=== PATIENT | male | born 1980 | race Caucasian/White ===

== ENCOUNTER 2017-05-26 16:59 | Emergency (ER) | payer OTHER ==
[~2017-05-26] VITALS: Ht 175.3 cm; Wt 90.7 kg
--- NOTE | ~2017-05-26 | EKG ---
[place] [id number] [address] [facility] [address] ELECTROCARDIOGRAM REPORT Name: RJ LUNA [id number] Admission: 05/26/17 Attend Phys: Discharge: 05/26/17 Date of : 84 Report #: [id number] THIS REPORT FOR: //name// [facility] ED Test Date: 2017-05-26 Test Time: 17:31:38 Pat Name: RJ LUNA Department: Room: Gender: M [employer] Technician: PATEL : 1980 Requested By: Genie Perdomo Order Number: [id number] MD: Laci Randolph Measurements Intervals [place] Rate: 59 P: 21 [place]: 126 QRS: 36 QRSD: 87 T: 27 QT: 380 QTc: 377 Interpretive Statements Sinus rhythm ST elev, probable normal early repol pattern No previous ECG available for comparison Electronically Signed On 05-27-2017 22:17:54 CDT by Laci Randolph [email or web address] <ELECTRONICALLY SIGNED> By: Laci Randolph MD 05/27/17 2217 1731 1731 MD KEYSHA Randall
[2017-05-26 17:31] LABS: ABSOLUTE NEUTROPHILS 4.9 thou/uL (1.4-8.2); BASOPHILS 0.9 % (0.0-2.0); EOSINOPHILS 2.1 % (0.0-3.0); HEMATOCRIT 46.4 % (42.0-52.0); HEMOGLOBIN 16.1 gm/dL (14.0-18.0); LYMPHOCYTES 26.6 % (24.0-44.0); MANUAL DIFF NO; MCH 30.2 pg (26.0-34.0); MCHC 34.7 g/dL (28.0-37.0); MCV 86.8 fL (80.0-100.0); MONOCYTES 9.2 % (1.0-8.0); PLATELET COUNT 183 thou/uL (150-400); POLYS 61.2 % (36.0-66.0); RBC 5.35 mil/uL (4.50-6.00); RDW 13.1 % (10.5-14.5)
[2017-05-26 17:40] LABS: CALCIUM 9.8 mg/dL (8.5-10.1); POTASSIUM 4.1 mmol/L (3.5-5.1)
[2017-05-26 17:45] LABS: ALBUMIN 4.5 g/dL (3.4-5.0); TOTAL BILIRUBIN 0.5 mg/dL (<0.1-1.0); TOTAL PROTEIN 7.8 g/dL (6.4-8.2)
[2017-05-26 18:14] LABS: URINE BILIRUBIN NEGATIVE (Negative); URINE BLOOD NEGATIVE (Negative); URINE COLOR YELLOW; URINE GLUCOSE-RANDOM* NEGATIVE (Negative); URINE KETONES NEGATIVE (Negative); URINE NITRITE NEGATIVE (Negative); URINE PROTEIN (DIPSTICK) NEGATIVE (Negative); URINE SPECIFIC GRAVITY 1.015 (1.003-1.035); URINE UROBILINOGEN 0.2 E.U./dl (0.2-1.0)
[2017-05-26 19:11] VITALS: BP 119/90
== END 2017-05-26 19:20 | disposition home or self-care (01) ==
LOC: ER 16:59
PROVIDERS: Nurse Practitioner Family
DX: F07.81 Postconcussional syndrome (principal)